=== PATIENT | female | born 1955 | race American Indian/Alaskan Native ===

== ENCOUNTER 2016-11-17 13:15 | Outpatient (CLI) | payer OTHER ==
--- NOTE | 2016-11-17 15:13 | Mammography Report ---
RIGHT DIGITAL DIAGNOSTIC MAMMOGRAM with CAD and RIGHT BREAST ULTRASOUND: 11/17/16 13:15:00 CLINICAL: Recent abnormal mammogram for which biopsy of a right nodule was recommended. COMPARISON:[facility] 09/28/16 mammogram and ultrasound and August 2016 and August 2014 mammograms. 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 An oval circumscribed 9 mm density on the MLO view correlates with what was described as a suspicious nodule. However, no ultrasound correlation was identified on the [facility] ultrasound. It is only identified on the MLO view and not the CC view. I believe it was present in 2013 but may have been slightly smaller. Ultrasound of the upper right breast was performed and failed to demonstrate a mass to correlate with the mammographic density on the MLO view. Ultrasound demonstrated a dilated duct at 9 o'clock 6 cm from the nipple and intraductal debris or mass measuring 3.4 x 1.0 cm. This dilated duct correlates with the stable mammographic finding. An additional dilated duct is identified at 6 o'clock and also contains intraductal debris. This duct measures 3.6 x 0.7 cm. Doppler interrogation of both ducts at 9 o'clock and 6 o'clock revealed no abnormal blood flow. An oval heterogeneous thick walled cyst or solid mass at 3 o'clock 7 cm from the nipple measures 4 x 3 x 4 mm. There is no mammographic correlate. 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 BI-RADS CATEGORY: 3 - - Probably Benign RECOMMENDATION: Six month followup right mammogram and right breast ultrasound. ACR BI-RADS MAMMOGRAPHIC CODES: 0 = Needs additional imaging evaluation; 1 = Negative; 2 = Benign; 3 = Probably benign; 4 = Suspicious; 5 = Malignant; 6 = Known biopsy-proven malignancy COMMENT: 1. Dense breast tissue, i.e., adenosis, fibrocystic changes, etc., may obscure an underlying neoplasm. 2. Approximately 10% of cancers are not detected with mammography. 3. A negative mammography report should not delay biopsy if a clinically suspicious mass is present. COMMENT: Patient follow-up letters are generated by our [employer] application.
== END 2016-11-17 13:16 | disposition home or self-care (01) ==
LOC: SPVWC 13:15
PROVIDERS: ATTEND Surgery
DX: N60.41 Mammary duct ectasia of right breast (principal)
CPT/HCPCS: 76642; G0206

== ENCOUNTER 2017-05-25 13:14 | Outpatient (CLI) | payer OTHER ==
--- NOTE | 2017-05-25 16:26 | Ultrasound Report ---
RIGHT DIGITAL DIAGNOSTIC MAMMOGRAM with CAD: 05/25/17 13:14:00 CLINICAL: Duct ectasia and intraductal debris. COMPARISON:11/17/16 and those studies were compared to previous [facility] mammograms going back to 2013 FINDINGS: The breast is mostly fatty with stable extensive retroareolar duct ectasia. The most prominent duct is at 9 o'clock and measures 15 mm diameter with stable intraductal debris/mass. The previously described 9 mm asymmetry on the MLO view is no longer seen. Scattered benign calcifications. No architectural distortion or suspicious calcifications. Ultrasound of the right breast demonstrated stable duct ectasia with stable relatively echogenic intraductal material which demonstrates no blood flow on color Doppler. Stable dilated duct at 9 o'clock 6 cm from the nipple measuring 3.3 x 1.6 x 1.5 cm. A second dilated duct with relatively echogenic intraductal material at 9 o'clock 4 cm from the nipple measures 4.0 x 1.9 x 0.6 cm. A subareolar duct at 6 o'clock contains echogenic intraductal material, is stable in size and measures 4.2 x 0.9 x 3.0 cm. A benign cyst at 3 o'clock 6 cm from the nipple measures 5 x 3 x 4 mm. Ultrasound of the right axilla demonstrates a benign appearing lymph node measuring 1.8 cm. 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 BI-RADS CATEGORY: 2 -- Benign RECOMMENDATION: Return to routine mammographic screening. ACR BI-RADS MAMMOGRAPHIC CODES: 0 = Needs additional imaging evaluation; 1 = Negative; 2 = Benign; 3 = Probably benign; 4 = Suspicious; 5 = Malignant; 6 = Known biopsy-proven malignancy COMMENT: 1. Dense breast tissue, i.e., adenosis, fibrocystic changes, etc., may obscure an underlying neoplasm. 2. Approximately 10% of cancers are not detected with mammography. 3. A negative mammography report should not delay biopsy if a clinically suspicious mass is present. COMMENT: Patient follow-up letters are generated by our [employer] application.
== END 2017-05-25 13:15 | disposition home or self-care (01) ==
LOC: SPVWC 13:14
PROVIDERS: ATTEND Surgery
DX: N60.02 Solitary cyst of left breast (principal); N60.41 Mammary duct ectasia of right breast; R92.1 Mammographic calcification found on diagnostic imaging of breast; I10 Essential (primary) hypertension
CPT/HCPCS: 76642; G0206

== ENCOUNTER 2017-12-14 09:20 | Outpatient (CLI) | payer BC ==
--- NOTE | 2017-12-14 10:39 | Mammography Report ---
BILATERAL DIGITAL SCREENING MAMMOGRAM with CAD: 12/14/17 CLINICAL: Routine screening. COMPARISON:05/25/17 right mammogram. No comparison left mammogram. However, previous mammograms were apparently done at [facility]. FINDINGS: The breasts are mostly fatty. Stable right duct ectasia with stable intraductal debris/mass.Stable right calcifications.Left asymmetries require comparison with the prior mammogram. IMPRESSION: Left asymmetries requiring further evaluation. BI-RADS CATEGORY: 0 -- Additional Evaluation Required RECOMMENDATION: Comparison with a previous mammogram. We will attempt to obtain a prior mammogram for comparison. If we do not obtain a prior mammogram within 30 days, a revised report will be issued recommending a recall for additional imaging. Please be advised that the patient should not schedule an appointment for return until adequate time (at least 2 weeks) has passed for us to obtain the prior mammogram. ACR BI-RADS MAMMOGRAPHIC CODES: 0 = Needs additional imaging evaluation; 1 = Negative; 2 = Benign; 3 = Probably benign; 4 = Suspicious; 5 = Malignant; 6 = Known biopsy-proven malignancy COMMENT: 1. Dense breast tissue, i.e., adenosis, fibrocystic changes, etc., may obscure an underlying neoplasm. 2. Approximately 10% of cancers are not detected with mammography. 3. A negative mammography report should not delay biopsy if a clinically suspicious mass is present. COMMENT: Patient follow-up letters are generated via our [employer] application.
== END 2017-12-14 09:21 | disposition home or self-care (01) ==
LOC: SPVWC 09:20
PROVIDERS: ATTEND Surgery
DX: Z12.31 Encounter for screening mammogram for malignant neoplasm of breast (principal)
CPT/HCPCS: 77067

== ENCOUNTER 2018-12-20 09:06 | Outpatient (CLI) | payer BC ==
--- NOTE | 2018-12-20 09:50 | Mammography Report ---
BILATERAL DIGITAL SCREENING MAMMOGRAM with CAD: 12/20/18 09:06:00 CLINICAL: Routine screening.History of right duct ectasia with benign intraductal debris. COMPARISON:12/14/17 bilateral mammogram and right mammograms from 05/16/17 and 11/17/16 FINDINGS: There are bilateral scattered fibroglandular densities. Moderate bilateral retroareolar duct ectasia, greater on the right than the left. Stable mixed density right outer intraductal masses. These were previously imaged with ultrasound and found to have no blood flow. An oval partially circumscribed slightly irregular left inner focal asymmetry requires additional imaging. Bilateral benign calcifications.No architectural distortion or suspicious calcifications. IMPRESSION: Left asymmetry requiring further workup. I suspect that this may be a cyst. BI-RADS CATEGORY: 0 -- Additional Imaging Evaluation Required RECOMMENDATION: Recall for left lateralmedial , spot compression CC and MLO views and targeted left breast ultrasound. ACR BI-RADS MAMMOGRAPHIC CODES: 0 = Needs additional imaging evaluation; 1 = Negative; 2 = Benign; 3 = Probably benign; 4 = Suspicious; 5 = Malignant; 6 = Known biopsy-proven malignancy COMMENT: 1. Dense breast tissue, i.e., adenosis, fibrocystic changes, etc., may obscure an underlying neoplasm. 2. Approximately 10% of cancers are not detected with mammography. 3. A negative mammography report should not delay biopsy if a clinically suspicious mass is present. COMMENT: Patient follow-up letters are generated via our [employer] application.
== END 2018-12-20 09:07 | disposition home or self-care (01) ==
LOC: SPVWC 09:06
PROVIDERS: ATTEND Surgery
DX: Z12.31 Encounter for screening mammogram for malignant neoplasm of breast (principal)
CPT/HCPCS: 77067

== ENCOUNTER 2018-12-27 09:39 | Outpatient (CLI) | payer BC ==
--- NOTE | 2018-12-27 10:48 | Mammography Report ---
LEFT DIGITAL DIAGNOSTIC MAMMOGRAM and LEFT BREAST ULTRASOUND: 12/27/18 09:39:00 CLINICAL: Recalled for asymmetry. COMPARISON:12/20/18 screening FINDINGS: An oval circumscribed mass in the upper inner quadrant persists on additional views. Ultrasound of the upper inner left breast was performed and demonstrated a lobular shaped complex cyst at 10 o'clock 5 cm from the nipple. It correlates with the mammographic mass and measures 9 x 8 x 7 mm. A portion of the wall is thickened and measures approximately 2 mm. IMPRESSION: A mildly suspicious 9 mm complex cyst at 10 o'clock 5 cm from the nipple.Recommend ultrasound-guided cyst aspiration to exclude malignancy. BI-RADS CATEGORY: 4--Suspicious COMMENT: 1. Dense breast tissue, i.e., adenosis, fibrocystic changes, etc., may obscure an underlying neoplasm. 2. Approximately 10% of cancers are not detected with mammography. 3. A negative mammography report should not delay biopsy if a clinically suspicious mass is present. COMMENT: Patient follow-up letters are generated via our [employer] application.
== END 2018-12-27 09:40 | disposition home or self-care (01) ==
LOC: SPVWC 09:39
PROVIDERS: ATTEND Surgery
DX: R92.8 Other abnormal and inconclusive findings on diagnostic imaging of breast (principal); I10 Essential (primary) hypertension

== ENCOUNTER 2019-01-10 08:43 | Outpatient (CLI) | payer BC ==
--- NOTE | 2019-01-10 09:42 | Mammography Report ---
LEFT DIGITAL DIAGNOSTIC MAMMOGRAM : 01/10/19 CLINICAL: Immediately status post cyst aspiration. COMPARISON:12/27/18 FINDINGS: The previous described circumscribed density has resolved. A localizer clip in the upper inner quadrant is slightly discordant with the location of the previously identified cyst.The clip is approximately 2 cm inferior and approximately 1 cm lateral to the lesion. IMPRESSION: Resolution of mammographic mass with cyst aspiration. BI-RADS CATEGORY: 4A--Mildly Suspicious Cytology pending.
--- NOTE | 2019-01-10 10:09 | Ultrasound Report ---
ULTRASOUND ASPIRATION LEFT BREAST: 01/10/19 08:45:00 CLINICAL: A lobular shape cyst with wall thickening at 10 o'clock 5 cm from the nipple. COMPARISON: 12/27/18 FINDINGS: The procedure was explained to the patient and informed consent was obtained. Ultrasound demonstrated the previously described cyst. The skin was cleansed with Betadine and anesthetized with 1% lidocaine. A 20-gauge needle was introduced into the cyst with ultrasound guidance. Approximately 1 cc of light pink clear fluidwas removed. A clip was deployed at the aspiration site. The fluid was placed in Cytolyte and sent to the lab for analysis. The patient tolerated the procedure well and there were no apparent complications. A two-view mammogram demonstrated slight discordance in clip position. IMPRESSION: Uncomplicated cyst aspiration left breast.
== END 2019-01-10 08:44 | disposition home or self-care (01) ==
LOC: SPVWC 08:43
PROVIDERS: ATTEND Surgery
DX: N60.02 Solitary cyst of left breast (principal); R92.2 Inconclusive mammogram; R92.8 Other abnormal and inconclusive findings on diagnostic imaging of breast; I10 Essential (primary) hypertension; K21.9 Gastro-esophageal reflux disease without esophagitis; M79.7 Fibromyalgia; Z79.899 Other long term (current) drug therapy; Z79.84 Long term (current) use of oral hypoglycemic drugs; Z82.49 Family history of ischemic heart disease and other diseases of the circulatory system
CPT/HCPCS: 88112

== ENCOUNTER 2020-07-18 09:17 | Outpatient (CLI) | payer MEDICARE ==
--- NOTE | 2020-07-18 10:38 | Mammography Report ---
DIGITAL SCREENING MAMMOGRAM WITH CAD, 07/18/2020 CLINICAL INFORMATION / INDICATION: Routine screening mammography. TECHNIQUE: Digital bilateral 2D mammography was obtained in the craniocaudal and mediolateral obliqu e projections. This examination was interpreted with the benefit of Computer-Aided Detection analysis . COMPARISON: 01/10/2019, 12/20/2018, 12/14/2017 FINDINGS: Breast Density: There are scattered areas of fibroglandular density. No dominant mass, suspicious calcifications, or architectural distortion in either breast. A biopsy clip is again seen in the 9:00 position middle depth of the left breast. Bilateral benign ca lcifications are unchanged. IMPRESSION: No mammographic evidence of malignancy. Follow up recommendation: Routine yearly BI-RADS Category 2: Benign. A "normal" or negative report should not discourage follow up or biopsy of a clinically significant f inding. A written summary of these findings will be mailed to the patient. The patient will be entered into a mammography reporting system which will generate a reminder letter for the patient's next appointmen t at the appropriate interval. [employer] recommends yearly mammograms starting at age 40 and continuing as l justin as a woman is in good health. Breast MRI is recommended for women with an approximate 20-25% or greater lifetime risk of breast cancer, including women with a strong family history of breast or ova andrew cancer or who have been treated for Hodgkin's disease. Signer Name: Herminio Sauer MD Signed: 07/18/2020 10:33 AM Workstation Name: [email or web address]
== END 2020-07-18 09:18 | disposition home or self-care (01) ==
LOC: SPVWC 09:17
PROVIDERS: ATTEND Surgery
DX: Z12.31 Encounter for screening mammogram for malignant neoplasm of breast (principal)
CPT/HCPCS: 77067